=== PATIENT | female | born 1975 | race Caucasian/White ===

== ENCOUNTER → 2017-08-04 | Outpatient (CLI) | payer BC ==
[~2017-08-04] MED LIST: AMOX1XR PO; AZIT250 PO; BUPR150T2 PO; CEFU250 PO; CIPRSO OU; Cipro500 MG PO; ESCI10 PO; ESCI20 PO; ESTR2 PO; FLUT.05NI; Flonase 0.05% N16 GM; IBUP800 PO; LEVOTHYROXINE 112 MCG PO; LEVSOD112 PO; ONDA8 PO; OXYACE5T PO; PROBIOTIC1 EAC1 PO; PROM25 PO; Percocet 5-3251 EACH PO; Pyridium200 MG PO; ROXICODONE5 MG PO; Sudogest60 MG PO; Synthroid112 MCG PO; Zofran Odt4 MG SL
== END | disposition home or self-care (01) ==
LOC: LAB SHORT 17:17 → LAB 17:17
DX: R35.0 Frequency of micturition (principal)
CPT/HCPCS: 87086

== ENCOUNTER → 2020-04-30 | Outpatient (CLI) | payer BC ==
[2020-04-30 18:45] LABS: BASOPHILS ABSOLUTE AUTO 0.05 K/mm3 (0.00-0.23); BASOPHILS PERCENT AUTO 1 % (0-2); EOSINOPHILS PERCENT AUTO 0 % (0-6); Hematocrit 38.6 % (33.0-51.0); Hemoglobin 12.5 g/dL (11.5-16.0); IMMATURE GRAN ABSOLUTE AUTO 0.01 K/mm3 (0.00-0.10); IMMATURE GRAN PERCENT AUTO 0 % (0-1); LYMPHOCYTES ABSOLUTE AUTO 1.97 K/mm3 (0.84-5.20); LYMPHOCYTES PERCENT AUTO 28 % (21-46); MONOCYTES ABSOLUTE AUTO 0.63 K/mm3 (0.16-1.47); MONOCYTES PERCENT AUTO 9 % (4-13); Mean Corpuscular HGB Conc 32.4 g/dL (31.5-36.5); Mean Corpuscular Volume 99 fL (80-100); Mean Platelet Volume 10.4 fL (9.1-12.4); NEUTROPHILS ABSOLUTE AUTO 4.33 K/mm3 (1.96-9.15); NEUTROPHILS PERCENT AUTO 62 % (41-73); Platelet Count 338 K/mm3 (150-400); RDW Coefficient Variation 12.4 % (11.7-14.2); RDW Standard Deviation 44.7 fL (35.1-46.3); Red Blood Cell Count 3.91 M/mm3 (3.80-5.20); White Blood Cell Count 6.99 K/mm3 (4.00-11.30)
[2020-04-30 19:43] LABS: Free Thyroxine 1.56 ng/dL (0.70-1.60)
[2020-04-30 19:48] LABS: Thyroid Stimulating Hormone 0.012 uIU/mL (0.360-4.800)
== END ==
LOC: LAB 15:46 → LAB SHORT 15:46
PROVIDERS: Hospitalist
DX: E03.9 Hypothyroidism, unspecified (principal); R53.83 Other fatigue
CPT/HCPCS: 84439; 84443; 85025

== ENCOUNTER → 2021-06-18 | Outpatient (CLI) | payer BC ==
[2021-06-18 18:57] LABS: Free Thyroxine 1.52 ng/dL (0.70-1.60); Thyroid Stimulating Hormone 0.019 uIU/mL (0.360-4.800); Triiodothyronine, Free 2.91 pg/mL (2.18-3.98)
== END ==
LOC: LAB SHORT 16:45 → LAB 16:45
PROVIDERS: Hospitalist
DX: E03.9 Hypothyroidism, unspecified (principal)
CPT/HCPCS: 84439; 84443; 84481

== ENCOUNTER → 2022-07-03 | Outpatient (CLI) | payer BC ==
[2022-07-03 21:24] LABS: Free Thyroxine 1.27 ng/dL (0.70-1.60)
[2022-07-03 21:29] LABS: Thyroid Stimulating Hormone 0.057 uIU/mL (0.360-4.800); Triiodothyronine, Free 2.74 pg/mL (2.18-3.98)
== END | disposition home or self-care (01) ==
LOC: LAB 16:45 → LAB SHORT 16:45
PROVIDERS: Hospitalist
DX: E03.9 Hypothyroidism, unspecified (principal)
CPT/HCPCS: 84439; 84443; 84481

== ENCOUNTER → 2024-03-29 | Outpatient (CLI) | payer BC ==
[2024-03-29 21:42] LABS: Free Thyroxine 1.03 ng/dL (0.70-1.60)
[2024-03-29 21:44] LABS: Thyroid Stimulating Hormone 0.704 uIU/mL (0.360-4.800); Triiodothyronine, Free 2.6 pg/mL (2.18-3.98)
== END ==
LOC: LAB 17:40 → LAB SHORT 17:40
PROVIDERS: Hospitalist
DX: E03.9 Hypothyroidism, unspecified (principal)
CPT/HCPCS: 84439; 84443; 84481

== ENCOUNTER → 2025-03-14 | Outpatient (CLI) | payer BC ==
[2025-03-14 19:25] LABS: Thyroid Stimulating Hormone 0.591 uIU/mL (0.360-4.800)
== END | disposition home or self-care (01) ==
LOC: LAB 17:43 → LAB SHORT 17:43
PROVIDERS: Hospitalist
DX: E03.9 Hypothyroidism, unspecified (principal)
CPT/HCPCS: 84439; 84443; 84481